=== PATIENT | female | born 1995 ===

== ENCOUNTER 2021-10-11 10:55 | Outpatient (CLI) | payer OTHER | END 2021-10-11 12:30 | disposition home or self-care (01) | LOC: PRENATAL 10:55 | PROVIDERS: ATTEND Obstetrics & Gynecology Maternal & Fetal Medicine | DX: O35.0XX0 Maternal care for (suspected) central nervous system malformation in fetus, not applicable or unspecified (principal); O35.3XX0 Maternal care for (suspected) damage to fetus from viral disease in mother, not applicable or unspecified; O34.219 Maternal care for unspecified type scar from previous cesarean delivery; Z3A.20 20 weeks gestation of pregnancy ==

== ENCOUNTER 2021-12-11 21:21 | Outpatient (CLI) | payer OTHER | END 2021-12-12 10:38 | disposition home or self-care (01) | LOC: OBS/DEL 21:21 | PROVIDERS: ATTEND Obstetrics & Gynecology | DX: O46.8X3 Other antepartum hemorrhage, third trimester (principal); Z3A.28 28 weeks gestation of pregnancy ==

== ENCOUNTER 2022-01-25 13:23 | Inpatient (IN) | payer OTHER ==
[~2022-01-25] VITALS: Ht 162.6 cm; Wt 2.3 kg
[2022-01-25] MEDS ORDERED: PRENATABS FA T1 EACH PO (14:27)
== END 2022-02-02 13:24 | disposition home or self-care (01) | DRG 786 ==
LOC: LDR 13:23 → OB/GYN 13:23 → LDR 13:48 → OB/GYN 01-27 11:18
PROVIDERS: ADMIT Obstetrics & Gynecology; ATTEND Obstetrics & Gynecology
PROC: 4A1HXCZ Monitoring of Products of Conception, Cardiac Rate, External Approach (ICD-10-PCS; 2022-01-25)
PROC: BY4FZZZ Ultrasonography of Third Trimester, Single Fetus (ICD-10-PCS; 2022-01-25)
PROC: BU4CZZZ Ultrasonography of Uterus and Ovaries (ICD-10-PCS; 2022-01-25)
PROC: 10D00Z1 Extraction of Products of Conception, Low, Open Approach (ICD-10-PCS; principal; 2022-01-30 08:15)
DX: O36.8130 Decreased fetal movements, third trimester, not applicable or unspecified (principal); O60.14X0 Preterm labor third trimester with preterm delivery third trimester, not applicable or unspecified; O26.843 Uterine size-date discrepancy, third trimester; O34.211 Maternal care for low transverse scar from previous cesarean delivery; Z3A.35 35 weeks gestation of pregnancy; Z37.0 Single live birth; Z20.822 Contact with and (suspected) exposure to COVID-19